=== PATIENT | male | born 1955 | race Caucasian/White ===

== ENCOUNTER 2018-01-06 21:41 | Inpatient (IN) | payer MEDICARE, OTHER ==
[~2018-01-06] VITALS: Ht 180.3 cm; Wt 104.3 kg
--- NOTE | 2018-01-06 22:15 | NUR ---
Dr. Clay at bedside for MSE.
[2018-01-06 22:36] LABS: BASOPHILS # (AUTO) 0.1 K/uL (0.0-8.0); BASOPHILS % (AUTO) 0.2 % (0.0-2.0); EOSINOPHILS # (AUTO) 0.6 K/uL (0.0-0.7); EOSINOPHILS % (AUTO) 2.6 % (0.0-7.0); HEMATOCRIT 32.3 % (36.7-47.1); HEMOGLOBIN 10.7 g/dL (12.5-16.3); LYMPHOCYTES # (AUTO) 1.3 K/uL (20.0-40.0); LYMPHOCYTES % (AUTO) 5.7 % (20.5-51.5); MEAN CORPUSCULAR HEMOGLOBIN 27.9 uug (23.8-33.4); MEAN CORPUSCULAR HGB CONC 33 g/dL (32.5-36.3); MEAN CORPUSCULAR VOLUME 83.9 fL (73.0-96.2); MONOCYTES % (AUTO) 9.3 % (0.0-11.0); NEUTROPHILS % (AUTO) 82.2 % (38.5-71.5); PLATELET COUNT (AUTO) 332 K/uL (152-348); RED BLOOD CELL COUNT(AUTO) 3.85 MIL/uL (4.06-5.63); WHITE BLOOD COUNT (AUTO) 21.9 K/uL (3.6-10.2)
[2018-01-06 22:46] LABS: CREATININE 2.6 mg/dL (0.6-1.3)
[2018-01-06 22:50] LABS: POTASSIUM 2.5 mmol/L (3.5-5.1)
[2018-01-06 22:52] LABS: BILIRUBIN,DIRECT 0.4 mg/dL (0.0-0.2); BILIRUBIN,TOTAL 0.8 mg/dL (0.2-1.0)
[2018-01-06] MEDS ORDERED: HYDR2TAB8 PO (23:16)
[2018-01-06] MEDS ORDERED: AMLO10TA2 PO (23:16)
[2018-01-06] MEDS ORDERED: LOPE2TAB25 PO (23:16)
[2018-01-06] MEDS ORDERED: HYDR2TAB4 PO (23:16)
[2018-01-06] MEDS ORDERED: TEMA7.5C2 PO (23:16)
[2018-01-06] MEDS ORDERED: CHOL200010 PO (23:16)
[2018-01-06] MEDS ORDERED: FOLI1TAB16 PO (23:16)
[2018-01-06] MEDS ORDERED: TAMS-3 PO (23:16)
[2018-01-06] MEDS ORDERED: FERR325T24 PO (23:16)
[2018-01-06] MEDS ORDERED: ASPI81TA31 PO (23:16)
[2018-01-06] MEDS ORDERED: METR500T PO (23:16)
[2018-01-06] MEDS ORDERED: ACET325C PO (23:16)
[2018-01-06] MEDS ORDERED: POTASSIUM CHLORIDE 20 MEQ TAB.PRT.SR PO ONE (23:45)
[2018-01-06 23:47] LABS: BAND % (MANUAL) 13 % (0-10); EOSINOPHILS % (MANUAL) 2 % (0-8); LYMPHOCYTES % (MANUAL) 5 % (20-40); MONOCYTES % (MANUAL) 9 % (2-10); NEUTROPHILS % (MANUAL) 71 % (42-75)
[2018-01-06] MEDS ORDERED: POTASSIUM CHLORIDE 20 MEQ TAB.PRT.SR ONE (23:51)
--- NOTE | 2018-01-07 00:45 | NUR ---
Pt has diarrhea, changed diaper.
--- NOTE | 2018-01-07 02:30 | NUR ---
Pt has diarrhea, changed diaper.
--- NOTE | 2018-01-07 03:18 | NUR ---
Pt states he has abd pain 01/24, requesting pain medication. MD notified.
--- NOTE | 2018-01-07 04:00 | NUR ---
Dr. Clay on panel call with Susie Marsh NP.
--- NOTE | 2018-01-07 04:00 | NUR ---
Pt has diarrhea, changed diaper.
[2018-01-07] MEDS ORDERED: HYDROCODONE/APAP 10-325 MG TABLET PO PRN (04:45)
[2018-01-07] MEDS ORDERED: ONDANSETRON 4 MG/2 ML VIAL IV PRN (04:45)
[2018-01-07] MEDS ORDERED: MAGNESIUM HYDROXIDE 30 ML LIQUID UDC PO PRN (04:45)
[2018-01-07] MEDS ORDERED: Z GUARD REMEDY PASTE 57 GM TUBE TOP PRN (04:45)
[2018-01-07] MEDS ORDERED: HYDROCODONE/APAP 5-325MG TABLET PO PRN (04:45)
--- NOTE | 2018-01-07 04:57 | NUR ---
Report given to Tanna [employer].
[2018-01-07] MEDS ORDERED: Medication Not On Formulary EA (Acetaminophen 650 MG) PO PRN (05:00)
--- NOTE | 2018-01-07 05:00 | NUR ---
Pt has diarrhea, changed diaper.
--- NOTE | 2018-01-07 06:02 | NUR ---
admitted from er via gurney from [facility]. w/ admitting dx of sepsis. pt. is alert & oriented X4. hep lock intact & patent on l wrist. connected to monitors. c-scope sr, afebrile, bp stable. repositioned in bed w/ hob elevated.
[2018-01-07] MEDS ORDERED: PIPERACILLIN/TAZOBACTAM/D5W 50 ML ONE ×2 (06:30→06:39)
[2018-01-07] MEDS ORDERED: POTASSIUM CHLORIDE 50 ML IV SCH ×2 (06:30→07:45)
[2018-01-07] MEDS ORDERED: PIPERACILLIN/TAZO 2.25 GM VIAL ONE (06:31)
[2018-01-07] MEDS: PIPERACILLIN/TAZOBACTAM/D5W 2.25 G in PREMIXED 1 EACH IV SCH ×2 (06:41→13:22)
[2018-01-07] MEDS ORDERED: IV NORMAL SALINE 250 ML IV PRN (06:45)
[2018-01-07 06:52] VITALS: BP 100/65
[2018-01-07 07:00] VITALS: BP 100/65
--- NOTE | 2018-01-07 07:21 | NUR ---
IV potassium started at low rate 30cc/hr. and immediately after pt. with complains of burning and pain at infusion site rate decrease to 20cc/hr. Attending Jarrett notified and orders for PICC line insertion received.
[2018-01-07] MEDS ORDERED: VANCOMYCIN IV 200 ML IV SCH (07:30)
[2018-01-07] MEDS: PANTOPRAZOLE SODIUM 40 MG TABLET.DR PO SCH (07:35)
[2018-01-07 08:00] VITALS: BP 116/70
[2018-01-07] MEDS ORDERED: LOPERAMIDE HCL 2 MG CAPSULE PO PRN (08:45)
[2018-01-07] MEDS ORDERED: VANCOMYCIN IV 1,500 MG in IV DEXTROSE 5% 500 ML IV ONE (09:00)
[2018-01-07] MEDS: CHOLECALCIFEROL 1,000 UNIT TABLET PO SCH (09:37)
[2018-01-07] MEDS: FOLIC ACID 1 MG TABLET PO SCH (09:38)
[2018-01-07] MEDS ORDERED: HYDROMORPHONE 1 MG/1 ML DISP.SYRIN IV PRN (10:30)
[2018-01-07] MEDS ORDERED: HYDROMORPHONE 2 MG/1 ML DISP.SYRIN IV PRN (10:45)
--- NOTE | 2018-01-07 11:05 | NUR ---
Dr. Martinez Kruger. in the unit to examine patient, full report given, also informed that abdominal ultrasound done. at bedside updating patient of care plan.
[2018-01-07 11:13] LABS: BASOPHILS # (AUTO) 0.1 K/uL (0.0-8.0); BASOPHILS % (AUTO) 0.3 % (0.0-2.0); EOSINOPHILS # (AUTO) 0.4 K/uL (0.0-0.7); EOSINOPHILS % (AUTO) 2.2 % (0.0-7.0); HEMATOCRIT 30.5 % (36.7-47.1); HEMOGLOBIN 10.2 g/dL (12.5-16.3); LYMPHOCYTES % (AUTO) 5.6 % (20.5-51.5); MEAN CORPUSCULAR HEMOGLOBIN 27.8 uug (23.8-33.4); MEAN CORPUSCULAR HGB CONC 33 g/dL (32.5-36.3); MEAN CORPUSCULAR VOLUME 83.6 fL (73.0-96.2); MONOCYTES # (AUTO) 1.7 K/uL (2.0-10.0); MONOCYTES % (AUTO) 9.1 % (0.0-11.0); NEUTROPHILS # (AUTO) 15.2 K/uL (1.8-8.9); NEUTROPHILS % (AUTO) 82.8 % (38.5-71.5); PLATELET COUNT (AUTO) 252 K/uL (152-348); RED BLOOD CELL COUNT(AUTO) 3.65 MIL/uL (4.06-5.63); WHITE BLOOD COUNT (AUTO) 18.3 K/uL (3.6-10.2)
[2018-01-07 11:22] LABS: CREATININE 2.6 mg/dL (0.6-1.3)
[2018-01-07 11:25] LABS: POTASSIUM 2.5 mmol/L (3.5-5.1)
[2018-01-07 11:33] LABS: BILIRUBIN,TOTAL 0.8 mg/dL (0.2-1.0); MAGNESIUM 1.8 mg/dL (1.8-2.4); PHOSPHOROUS 4.6 mg/dL (2.5-4.9); TOTAL PROTEIN, SERUM 5.6 g/dL (6.4-8.2)
[2018-01-07 12:00] VITALS: BP 91/56
[2018-01-07 13:10] LABS: *BLOOD, URINE 2+ (NEGATIVE); *CLARITY,URINE CLEAR (CLEAR); *COLOR,URINE YELLOW (YELLOW); *KETONES,URINE NEGATIVE (NEGATIVE); *PROTEIN,URINE TRACE (NEGATIVE); *UROBILINOGEN,URINE 0.2 E.U./dl (NORMAL); LEUKOCYTE ESTERASE ,URINE TRACE (NEGATIVE); NITRITE, URINE NEGATIVE (NEGATIVE); UGLUCOSE NEGATIVE (NEGATIVE)
[2018-01-07 13:14] LABS: *BILIRUBIN,URIN 1+ (NEGATIVE)
[2018-01-07 13:16] LABS: BACTERIA,URINE FEW /HPF (NONE SEEN); SQUAMOUS EPITHELIAL CELL,UR FEW /HPF (NONE SEEN); YEAST,URINE BUDDING YEAST /HPF (NONE SEEN)
--- NOTE | 2018-01-07 13:41 | NUR ---
Clinical pharmacy note-Vancomycin dosing per pharmacy S:To start Vancomycin dosing on this patient for sepsis O;BUN 65/Scr 2.6 (not no HD) WBC 21.9 Temp 97.6 A/P: Since renal function is decreased, will dose by random level for now. Vancomycin 1500mg x1 was given today at 0900. Will draw random in am and follow the level for further dosing.
[2018-01-07] MEDS: FLUCONAZOLE 100 MG TABLET PO SCH (15:39)
[2018-01-07] MEDS: POTASSIUM CHLORIDE 20 MEQ TAB.PRT.SR PO SCH ×2 (15:39→17:54)
[2018-01-07 16:00] VITALS: BP 99/51
[2018-01-07] MEDS: HYDROMORPHONE HCL 2 MG TABLET PO PRN ×2 (16:20→20:56)
[2018-01-07] MEDS: VANCOMYCIN FOR PO/GT/NG USE PO SCH (17:59)
--- NOTE | 2018-01-07 18:09 | NUR ---
Patient consuming 0% for breakfast, lunch and dinner.
[2018-01-07 20:00] VITALS: BP 114/69
[2018-01-07] MEDS: ACETAMINOPHEN 325 MG TABLET PO PRN (20:55)
[2018-01-07] MEDS: TAMSULOSIN HCL 0.4 MG CAP.SR.24H PO SCH (20:57)
[2018-01-07] MEDS ORDERED: DOCUSATE SODIUM 100 MG CAPSULE PO SCH (21:00)
[2018-01-08 00:01] VITALS: BP 111/63
[2018-01-08] MEDS: VANCOMYCIN FOR PO/GT/NG USE PO SCH ×4 (00:32→19:20)
[2018-01-08] MEDS: HYDROMORPHONE HCL 2 MG TABLET PO PRN ×4 (01:57→22:26)
[2018-01-08 04:00] VITALS: BP 92/62
[2018-01-08 05:41] LABS: BASOPHILS # (AUTO) 0.1 K/uL (0.0-8.0); BASOPHILS % (AUTO) 0.3 % (0.0-2.0); EOSINOPHILS # (AUTO) 0.4 K/uL (0.0-0.7); EOSINOPHILS % (AUTO) 2.5 % (0.0-7.0); HEMOGLOBIN 9.9 g/dL (12.5-16.3); LYMPHOCYTES # (AUTO) 1.2 K/uL (20.0-40.0); LYMPHOCYTES % (AUTO) 7.1 % (20.5-51.5); MEAN CORPUSCULAR HEMOGLOBIN 27.6 uug (23.8-33.4); MEAN CORPUSCULAR HGB CONC 33 g/dL (32.5-36.3); MEAN CORPUSCULAR VOLUME 83.8 fL (73.0-96.2); MONOCYTES # (AUTO) 1.5 K/uL (2.0-10.0); MONOCYTES % (AUTO) 8.5 % (0.0-11.0); NEUTROPHILS # (AUTO) 14.3 K/uL (1.8-8.9); NEUTROPHILS % (AUTO) 81.6 % (38.5-71.5); PLATELET COUNT (AUTO) 212 K/uL (152-348); RED BLOOD CELL COUNT(AUTO) 3.58 MIL/uL (4.06-5.63); WHITE BLOOD COUNT (AUTO) 17.6 K/uL (3.6-10.2)
[2018-01-08 06:00] LABS: CREATININE 2.8 mg/dL (0.6-1.3); MAGNESIUM 1.8 mg/dL (1.8-2.4); POTASSIUM 3.3 mmol/L (3.5-5.1)
[2018-01-08 06:33] LABS: THYROID STIMULATING HORMONE 4.838 mIU/mL (0.358-3.740)
[2018-01-08] MEDS: PANTOPRAZOLE SODIUM 40 MG TABLET.DR PO SCH (07:03)
[2018-01-08] MEDS ORDERED: POTASSIUM CHLORIDE 50 ML IV SCH (07:30)
[2018-01-08 07:33] LABS: BAND % (MANUAL) 2 % (0-10); LYMPHOCYTES % (MANUAL) 6 % (20-40)
[2018-01-08 07:34] LABS: EOSINOPHILS % (MANUAL) 1 % (0-8); MONOCYTES % (MANUAL) 6 % (2-10); NEUTROPHILS % (MANUAL) 85 % (42-75)
[2018-01-08 08:00] VITALS: BP 87/55
[2018-01-08] MEDS ORDERED: POTASSIUM CHLORIDE 20 MEQ TAB.PRT.SR PO ONE (08:30)
--- NOTE | 2018-01-08 08:38 | NUR ---
At this time Dr. Henriquez notified of pt's low blood pressure orders to continue monitoring patient until he personally examines patient and contacts family for plan of care.
[2018-01-08] MEDS ORDERED: NOREPINEPHRINE BITARTRATE 16 MG in IV DEXTROSE 5% 500 ML IV PRN (08:45)
[2018-01-08] MEDS: FLUCONAZOLE 100 MG TABLET PO SCH (08:45)
[2018-01-08] MEDS: CHOLECALCIFEROL 1,000 UNIT TABLET PO SCH (08:45)
[2018-01-08] MEDS: FOLIC ACID 1 MG TABLET PO SCH (08:45)
[2018-01-08] MEDS ORDERED: METOCLOPRAMIDE HCL 10 MG/2 ML VIAL IV SCH (11:00)
[2018-01-08] MEDS: METOCLOPRAMIDE HCL 10 MG/2 ML VIAL IV SCH ×2 (11:47→19:22)
[2018-01-08 12:00] VITALS: BP 97/69
[2018-01-08 14:13] LABS: IRON, SERUM 30 ug/dL (50-175)
[2018-01-08 16:00] VITALS: BP 105/68
[2018-01-08 20:00] VITALS: BP 98/61
[2018-01-08] MEDS: TAMSULOSIN HCL 0.4 MG CAP.SR.24H PO SCH (20:10)
[2018-01-08] MEDS: ACETAMINOPHEN 325 MG TABLET PO PRN (22:26)
[2018-01-09] VITALS (14 sets, daily range): BP systolic 93–114; BP diastolic 56–73
[2018-01-09] MEDS: VANCOMYCIN FOR PO/GT/NG USE PO SCH ×4 (00:10→18:27)
[2018-01-09] MEDS: METOCLOPRAMIDE HCL 10 MG/2 ML VIAL IV SCH ×3 (03:27→18:27)
[2018-01-09] MEDS: HYDROMORPHONE HCL 2 MG TABLET PO PRN ×3 (03:47→19:47)
[2018-01-09] MEDS: PANTOPRAZOLE SODIUM 40 MG TABLET.DR PO SCH (06:46)
[2018-01-09] MEDS: FLUCONAZOLE 100 MG TABLET PO SCH (08:37)
[2018-01-09] MEDS: ACETAMINOPHEN 325 MG TABLET PO PRN (08:39)
[2018-01-09] MEDS: CHOLECALCIFEROL 1,000 UNIT TABLET PO SCH (08:40)
[2018-01-09] MEDS: FOLIC ACID 1 MG TABLET PO SCH (08:41)
--- NOTE | 2018-01-09 10:00 | NUR ---
Patient refusing to be reposition stating "I'm feeling comfortable in this position I'll let you know when I'm gonna be ready to move".
--- NOTE | 2018-01-09 12:18 | NUR ---
TELEPHONE REPORT GIVEN TO RN. BASHIR. PT. TRANSPORTED VIA OWN BED TO ROOM 215.
[2018-01-09] MEDS ORDERED: MIDAZOLAM HCL 2 MG/2 ML VIAL IV PRN (13:15)
[2018-01-09] MEDS ORDERED: FENTANYL CITRATE 100 MCG/2 ML AMPUL IV PRN (13:15)
[2018-01-09] MEDS ORDERED: NALOXONE HCL 0.4 MG/ML AMPUL IV PRN (13:15)
[2018-01-09] MEDS ORDERED: LIDOCAINE HCL 1% 20 ML VIAL ONE (14:05)
--- NOTE | 2018-01-09 14:10 | NUR ---
CT ultrasound guided percutaneous drainage with pig tail catheter placed started by Dr. Chuy Kinsey. Pt. AAOX4. signs stable. Pt. placed on oxygen NC3L. saturation wnl. Time out call out see doc. Procedure went uneventful and finished completely at 1530. Patient stable at all times. No need for sedation. A total of 6 Liter of yellowish clear fluid obtained labeled to the lab. Pig Tail drainage left on RUQ to gravity bag, as ordered by Dr. Vera. Patient transfer back to room 215 and bedside report given to Lynne Hughes.
[2018-01-09] MEDS ORDERED: FAMO-132 PO (17:58)
[2018-01-09] MEDS ORDERED: METO-295 PO (17:58)
[2018-01-09] MEDS ORDERED: VANC500V PO (17:58)
--- NOTE | 2018-01-09 18:10 | NUR ---
PT OBSERVED RESTING IN BED, AOX4, CALM,COOPERATIVE, NO SIGNS OF RESPIRATORY DISTRESS. OCHOA CATHETER PATENT AND FLOWING.URINE IS YELLOW/ORANGE IN COLOR CLEAR. CATHETER IN ABDOMEN IS DRAINING YELLOW CLEAR FLUID, PATENT. CONTINUE TO MONITOR PT.
[2018-01-09] MEDS: TAMSULOSIN HCL 0.4 MG CAP.SR.24H PO SCH (19:48)
--- NOTE | 2018-01-09 21:20 | NUR ---
Pt made aware of discharge plans. [facility]. Pain management provided. Pt noted to be calm and cooperative. No s/s of acute distress noted at this time. Discharged in a stable condition. Vital signs WNL.
== END 2018-01-09 22:10 | DRG 720 ==
LOC: ER 21:45 → CCU 01-07 05:00 → TELE 01-09 12:04
PROVIDERS: ADMIT Registered Nurse; ATTEND Internal Medicine
PROC: 0W9G30Z Drainage of Peritoneal Cavity with Drainage Device, Percutaneous Approach (ICD-10-PCS; principal; 2018-01-09)
DX: A41.9 Sepsis, unspecified organism (principal); R18.0 Malignant ascites; G92 Toxic encephalopathy; E87.2 Acidosis; E43 Unspecified severe protein-calorie malnutrition; A04.72 Enterocolitis due to Clostridium difficile, not specified as recurrent; K72.90 Hepatic failure, unspecified without coma; E11.22 Type 2 diabetes mellitus with diabetic chronic kidney disease; B37.49 Other urogenital candidiasis; Z66 Do not resuscitate; C78.7 Secondary malignant neoplasm of liver and intrahepatic bile duct; C18.9 Malignant neoplasm of colon, unspecified; D63.8 Anemia in other chronic diseases classified elsewhere; E55.9 Vitamin D deficiency, unspecified; Z68.32 Body mass index [BMI] 32.0-32.9, adult; Z22.322 Carrier or suspected carrier of Methicillin resistant Staphylococcus aureus; R62.7 Adult failure to thrive; E87.6 Hypokalemia; N40.0 Benign prostatic hyperplasia without lower urinary tract symptoms; G89.4 Chronic pain syndrome; Z79.891 Long term (current) use of opiate analgesic; Z79.82 Long term (current) use of aspirin; Z85.828 Personal history of other malignant neoplasm of skin; I12.9 Hypertensive chronic kidney disease with stage 1 through stage 4 chronic kidney disease, or unspecified chronic kidney disease; N18.9 Chronic kidney disease, unspecified; F32.9 Major depressive disorder, single episode, unspecified
CPT/HCPCS: 36415; 70030-TC; 71045; 74150; 75989; 76705; 83550; 83605; 83690; 83735; 84100; 84155; 84443; 85025; 85730; 87070; 87086; 87205; 93005; A4663; J1170; J2543; J2765; J3370; J3480; J3490; J7050; J7060